=== PATIENT | male | born 1970 | race Caucasian/White ===

== ENCOUNTER 2024-07-06 23:49 | Emergency (ER) | payer OTHER ==
[~2024-07-06] VITALS: Ht 185.4 cm; Wt 100.0 kg
[2024-07-07 00:15] VITALS: O2SAT 99
[2024-07-07 01:11] LABS: HEMOGLOBIN. 15.2 g/dL (14.0-18.0); MEAN CORPUSCULAR HEMOGLOBIN 32.8 pg (28.0-32.0); MEAN CORPUSCULAR HGB CONC 35.4 g/dL (31.0-37.0); MEAN CORPUSCULAR VOLUME 92.5 fL (80.0-94.0); MEAN PLATELET VOLUME 7.5 fl (7.4-10.4); PLATELET 207 x1000/uL (130-400); RED BLOOD CELL COUNT 4.65 mill/uL (4.7-6.1); RED CELL DISTRIBUTION WIDTH 13.4 % (11.6-14.6); WHITE BLOOD COUNT 13.7 x1000/uL (4.5-11.0)
[2024-07-07] MEDS: KETOROLAC 30MG/ML VIAL IV STA (01:18)
[2024-07-07] MEDS: LEVETIRACETAM 500MG PREMIX 100 ML IV ONE (01:18)
[2024-07-07] MEDS: SODIUM CHLORIDE 0.9% 1,000 ML IV ONE (01:18)
[2024-07-07 01:31] LABS: DIFFERENTIAL COMMENT 1
[2024-07-07] MEDS: TETANUS, DIPHTHERIA, PERTUSSIS VAC/PF 0.5ML (>10YR OLD) IM ONE (01:32)
[2024-07-07] MEDS: LIDOCAINE HCL/EPINEPHRINE 1%-EPI 1:100,000 20ML VIAL INFIL ONE (01:32)
[2024-07-07 01:43] LABS: POTASSIUM 3.4 mEq/L (3.5-5.1)
[2024-07-07 01:45] LABS: CALCIUM 9.4 mg/dL (8.7-10.4)
[2024-07-07 01:49] LABS: CREATININE 1.3 mg/dL (0.6-1.3)
[2024-07-07 02:22] LABS: PLATELET ESTIMATE NORMAL
[2024-07-07 02:24] LABS: OVALOCYTES JJJ
[2024-07-07] MEDS ORDERED: KEPP500 MT (02:30)
[2024-07-07] MEDS ORDERED: CEPH500C2 MT (02:30)
[2024-07-07 03:15] VITALS: BP 122/65; PULSE 68; RESP 17; TEMP 36.7; O2SAT 98
== END 2024-07-07 03:20 | disposition home or self-care (01) ==
LOC: ER 23:49
DX: R56.9 Unspecified convulsions (principal); S01.512A Laceration without foreign body of oral cavity, initial encounter; X58.XXXA Exposure to other specified factors, initial encounter; Y93.89 Activity, other specified; Y92.89 Other specified places as the place of occurrence of the external cause; Y99.8 Other external cause status
CPT/HCPCS: 99284; 12013; 96365; 96366; 96375; 80048; 85025; 36415; 93005; J1885; J1953; J2004; J7030